=== PATIENT | female | born 1940 | race Two or more races ===

== ENCOUNTER 2021-10-10 10:24 | Outpatient (CLI) | payer OTHER | END 2021-10-10 10:33 | disposition home or self-care (01) | LOC: LAB 10:24 | PROVIDERS: ATTEND Orthopaedic Surgery | DX: D68.9 Coagulation defect, unspecified (principal); E78.2 Mixed hyperlipidemia; N39.0 Urinary tract infection, site not specified; Z03.818 Encounter for observation for suspected exposure to other biological agents ruled out ==

== ENCOUNTER 2021-10-14 07:45 | Inpatient (IN) | payer OTHER ==
[~2021-10-14] VITALS: Ht 152.4 cm; Wt 68.0 kg
[2021-10-14] MEDS ORDERED: PROPRANOLOL HCL60 MG PO (09:21)
[2021-10-14] MEDS ORDERED: LOSARTAN-HCTZ1 EAC1 PO (09:22)
[2021-10-20] MEDS ORDERED: CLONAZEPAM1 MG (08:52)
[2021-10-20] MEDS ORDERED: CLOTRIMAZOLE-BE15 G1 (08:52)
[2021-10-20] MEDS ORDERED: QUETIAPINE FUM100 MG (08:53)
[2021-10-20] MEDS ORDERED: FOLIC ACID1 MG (08:56)
[2021-10-22] MEDS ORDERED: GABAPENTIN100 MG PO (11:33)
[2021-10-22] MEDS ORDERED: OXYC1TAB9 PO (11:33)
[2021-10-22] MEDS ORDERED: NORFLEX100MG PO (11:33)
[2021-10-22] MEDS ORDERED: XARELTO10 MG PO (11:34)
== END 2021-10-22 19:20 | disposition home or self-care (01) | DRG 470 ==
LOC: EDUNIT# 07:45 → O/R 10-20 06:22 → SURG 10-20 06:22 → SURH 10-20 07:45 → SURG 10-20 14:47
PROVIDERS: ADMIT Orthopaedic Surgery; ATTEND Orthopaedic Surgery
PROC: 4A12X4Z Monitoring of Cardiac Electrical Activity, External Approach (ICD-10-PCS; 2021-10-20)
PROC: 0SRC0JZ Replacement of Right Knee Joint with Synthetic Substitute, Open Approach (ICD-10-PCS; principal; 2021-10-20 11:00)
DX: M17.11 Unilateral primary osteoarthritis, right knee (principal); D62 Acute posthemorrhagic anemia; M85.861 Other specified disorders of bone density and structure, right lower leg; M85.661 Other cyst of bone, right lower leg; I10 Essential (primary) hypertension; I44.7 Left bundle-branch block, unspecified; R00.1 Bradycardia, unspecified

== ENCOUNTER → 2021-11-11 | Outpatient (CLI) | payer OTHER ==
[~2021-11-11] MED LIST: CLONAZEPAM1 MG; CLOTRIMAZOLE-BE15 G1; FOLIC ACID1 MG; GABAPENTIN100 MG PO; LOSARTAN-HCTZ1 EAC1 PO; NORFLEX100MG PO; OXYC1TAB9 PO; PROPRANOLOL HCL60 MG PO; QUETIAPINE FUM100 MG; XARELTO10 MG PO
== END | disposition home or self-care (01) ==
LOC: NUCLEAR 11:00
PROVIDERS: ATTEND Psychiatry & Neurology Neurology
DX: I80.03 Phlebitis and thrombophlebitis of superficial vessels of lower extremities, bilateral (principal)

== ENCOUNTER 2024-12-14 11:21 | Outpatient (CLI) | payer OTHER | END 2024-12-14 11:23 | disposition home or self-care (01) | LOC: RAD 11:21 | PROVIDERS: ATTEND Psychiatry & Neurology Neurology | DX: M25.552 Pain in left hip (principal) ==